=== PATIENT | female | born 1960 | race African-American/Black ===

== ENCOUNTER 2017-04-27 04:44 | Emergency (ER) | payer MEDICARE, OTHER ==
[~2017-04-27 04:44] MED LIST: ALBUTEROL20 ml INH; AMLODIPINE BESYL5 MG PO; ANTIINFLAMMATORY; ATORVASTATIN CA20 MG PO; CLEOCIN150 MG PO; CYMBALTA PO; DIFLUNISAL500 MG PO; EC-NAPROSYN500 MG PO; FLEXERIL PO; FLEXERIL10 MG PO; HYDROCHLOROTHIA25 MG PO; HYDROCODON-ACE1 EAC5 PO; HYDROCODONE-APA1 T30; KETOPROFEN PO; KLONOPIN0.5 M2 PO; LODINE400 MG PO; LORTAB 10/500 T1 TAB PO; MEDROL4 MG/DOSE- PO; MOBIC PO; MOBIC15 MG PO; NAPROSYN500 MG PO; NERVE PILL; NORCO 10/325 TA1 TAB PO; PAIN MED; PARAFON FORTE500 MG PO; PERCOCET 5-3251 TAB PO; PERCOCET 51 UDTAB 5/ PO; SYMBICORT 16010.2 GM; ZANAFLEX PO; ZITHROMAX PO; ZOLOFT; [UNRECOGNIZED DRUG - OTHER]
== END 2017-04-27 06:23 | disposition home or self-care (01) ==
LOC: CED 04:44
DX: S05.01XA Injury of conjunctiva and corneal abrasion without foreign body, right eye, initial encounter (principal); J45.909 Unspecified asthma, uncomplicated; I10 Essential (primary) hypertension; F17.210 Nicotine dependence, cigarettes, uncomplicated; Z98.890 Other specified postprocedural states; Z88.0 Allergy status to penicillin; Z88.2 Allergy status to sulfonamides; X58.XXXA Exposure to other specified factors, initial encounter; Y92.009 Unspecified place in unspecified non-institutional (private) residence as the place of occurrence of the external cause
CPT/HCPCS: 99283